=== PATIENT | male | born 1960 | race American Indian/Alaskan Native ===

== ENCOUNTER 2017-07-17 06:09 | Day surgery (SDC) | payer OTHER ==
[~2017-07-17 06:09] MED LIST: ANCEF/STERILE WATER 2 GM/20 ML IV NR; DEPO-MEDROL INTRA-ARTI ONE; MARCAINE-EPI/PF 0.5%-1:200,000 IJ ONE; NACL 0.9% 1000 ML 1,000 ML IV SCH; PEPCID PO NR; VERSED IV NR
[2017-07-17] MEDS ORDERED: NACL BACTERIOSTATIC INFILTRATI ONE (06:47)
[2017-07-17] MEDS ORDERED: DIPRIVAN 10 MG/ML IV ONE (07:25)
[2017-07-17] MEDS ORDERED: XYLOCAINE MPF 2% ONE (07:26)
[2017-07-17] MEDS ORDERED: DILAUDID ONE (07:26)
[2017-07-17] MEDS ORDERED: MARCAINE 0.5% 30 ML INFILTRATI ONE (07:27)
[2017-07-17] MEDS ORDERED: SUBLIMAZE ONE (07:28)
--- NOTE | 2017-07-17 07:40 | Anesthesia Consultation ---
Anesthesia Consult and Med Hx Date of service: 07/17/16 - Airway ROM Head & Neck: Adequate Mental/Hyoid Distance: Adequate Mallampati Class: Class II Intubation Access Assessment: Possibly Difficult - Pulmonary Exam CTA: Yes - Cardiac Exam Cardiac Exam: RRR - Pre-Operative Health Status ASA Pre-Surgery Classification: ASA2 Proposed Anesthetic Plan: General - Pulmonary Hx Smoking: No Hx Sleep Apnea: No (LOWELL PRE SCREEN HIGH RISK) - Cardiovascular System Hx Hypertension: Yes (X 4 YRS) - Endocrine Hx Non-Insulin Dependent Diabetes: Yes (takes metformin BS 131 this AM) - Other Systems Hx Cancer: No
--- NOTE | 2017-07-17 07:41 | Anesthesia Day of Surgery ---
Anesthesia Day of Surgery - Day of Surgery Patient Examined: Yes Patient H&P Reviewed: Yes Patient is NPO: Yes
[2017-07-17] MEDS ORDERED: MARCAINE 0.25% INFILTRATI ONE (07:55)
[2017-07-17] MEDS ORDERED: ZEMURON IV ONE (08:19)
[2017-07-17] MEDS ORDERED: ePHEDrine SULFATE ONE (08:45)
[2017-07-17] MEDS ORDERED: ZOFRAN ONE (08:49)
[2017-07-17] MEDS ORDERED: DECADRON ONE (08:49)
[2017-07-17] MEDS ORDERED: NEOSTIGMINE ONE (09:15)
[2017-07-17] MEDS ORDERED: ROBINUL ONE (09:15)
[2017-07-17] MEDS ORDERED: NACL 0.9% 1000 ML 1,000 ML ONE (09:37)
--- NOTE | 2017-07-17 10:39 | Procedure Note ---
Date of procedure: 07/17/17 Pre-op diagnosis: ruptured right anterior cruciate ligament Post-op diagnosis: same Procedure: Right anterior cruciate ligament reconstruction using allograft tendon Procedure The patient was given a femoral nerve block for postop pain management and preoperative holding neck she was transferred to the operating room and placed on the OR table in the supine position following the induction and intubation by anesthesia the patient's right lower extremity was prepped and draped in the usual sterile manner. A timeout procedure was done to identify the patient and the correct operative site. The leg was exsanguinated followed by inflation of the pneumatic tourniquet to 300 mmHg next routine stab wounds were made about the patellar tendon and the arthroscope and inflow cannula were inserted into the knee joint this was followed by inspection which revealed a acute anterior cruciate ligament rupture from the femoral attachment next the anterior cruciate ligament stump was debrided using a combination of the arthroscopic shaver and the tissue ablator the anatomic footprint on the distal femur was seen and using a 7 mm tunnel guide the guidewire was inserted into the anatomic footprint and brought out laterally through the subcutaneous tissues and skin A passing suture was placed on the guidewire and brought out laterally following this attention was turned to the tibial attachment of the anterior cruciate ligament and using the anterior cruciate ligament guide with 55 degree angle, a second guidewire was inserted into the proximal tibia position was checked via arthroscope this was followed by our reaming a 9 mm diameter tunnel. The anterior tibial allograft was prepared on the table with whip stitching and tensioning. The anterior cruciate ligament graft was advanced through the tibial tunnel into the joint and through the femoral tunnel the button was secured to the lateral cortex of the femur this was followed by tensioning of the anterior cruciate ligament graft under direct visualization of the arthroscope the knee was then cycled using flexion and extension maneuvers this was followed by insertion of a 9 mm interference screw into the proximal tibia D and E was then taken to range of motion and was found to be stable to stress testing the pulling sutures were removed the excess allograft was cut at the margins of the proximal tibia this was followed by closure of the wound and application of our routine postop dressings by the patient tolerated the procedure there were no complications he was sent to postanesthesia recovery in a stable condition Anesthesia: GETA Surgeon: JOSE LUIS BULLARD Automatic Fancy Machine Operator: ESCOBAR SANCHEZ Estimated blood loss: minimal Pathology: none Condition: stable Disposition: PACU
[2017-07-17] MEDS: SUBLIMAZE IV PRN ×2 (11:02→11:21)
--- NOTE | 2017-07-17 11:42 | Post Anesthesia Evaluation ---
- Post Anesthesia Evaluation Patient Participated: Yes Airway Patent: Yes Stable Respiratory Function: Yes Nausea/Vomiting: No Temp > 96.8F: Yes Pain Manageable: Yes Adequeate Hydration: Yes Anesthesia Complications: No
[2017-07-17] MEDS ORDERED: LACTATED RINGERS 1,000 ML IV SCH (12:00)
[2017-07-17] MEDS ORDERED: DILAUDID IV PRN (12:00)
[2017-07-17] MEDS ORDERED: ZOFRAN IV PRN (12:00)
[2017-07-17 14:22] VITALS: BP 154/69
== END 2017-07-17 06:10 | disposition home or self-care (01) ==
LOC: OR 06:09
PROVIDERS: ATTEND Orthopaedic Surgery
DX: S83.511A Sprain of anterior cruciate ligament of right knee, initial encounter (principal); W18.30XA Fall on same level, unspecified, initial encounter; Y93.9 Activity, unspecified; Y92.89 Other specified places as the place of occurrence of the external cause; Y99.9 Unspecified external cause status; I10 Essential (primary) hypertension; Z68.38 Body mass index [BMI] 38.0-38.9, adult
CPT/HCPCS: 29888; 82962; C1713; C1762; J0690; J1100; J1170; J2250; J2405; J2704; J2710; J3010; J7030; J1040

== ENCOUNTER 2017-10-20 12:10 | Outpatient (CLI) | payer OTHER ==
--- NOTE | 2017-10-20 18:31 | XRay Report ---
FINAL REPORT EXAM: XR KNEE 3V RT HISTORY: PAIN IN RIGHT KNEE TECHNIQUE: Three views of the right knee PRIORS: None. FINDINGS: There is questionable lucency seen through patella on AP view. Noted is a surgical plate and lucency present through the lateral femoral condyle likely reflecting prior ligamentous repair please correlate with surgical history. Small joint effusion present. No additional acute bony findings are seen. IMPRESSION: Questionable patellar fracture if continued clinical concern further evaluation with CT suggested Evidence for prior ACL repair Small joint effusion
== END 2017-10-20 12:11 | disposition home or self-care (01) ==
LOC: XRAY 12:10
PROVIDERS: ATTEND Orthopaedic Surgery
DX: M25.461 Effusion, right knee (principal); M25.561 Pain in right knee; Z98.890 Other specified postprocedural states

== ENCOUNTER 2018-04-23 11:48 | Day surgery (SDC) | payer OTHER ==
[2018-04-23] MEDS ORDERED: VERSED ONE (12:58)
[2018-04-23] MEDS ORDERED: SUBLIMAZE ONE (12:59)
[2018-04-23] MEDS ORDERED: DIPRIVAN 10 MG/ML IV ONE ×2 (12:59)
[2018-04-23] MEDS ORDERED: XYLOCAINE MPF 2% ONE (12:59)
[2018-04-23] MEDS ORDERED: NACL 0.9% 1000 ML 1,000 ML IV SCH (13:27)
--- NOTE | 2018-04-23 13:27 | Anesthesia Consultation ---
Anesthesia Consult and Med Hx Date of service: 04/23/18 - Airway Anesthetic Teeth Evaluation: Good ROM Head & Neck: Adequate Mental/Hyoid Distance: Adequate Mallampati Class: Class II Intubation Access Assessment: Probably Good - Pulmonary Exam CTA: Yes - Cardiac Exam Cardiac Exam: RRR - Pre-Operative Health Status ASA Pre-Surgery Classification: ASA3 Proposed Anesthetic Plan: MAC - Pulmonary Hx Smoking: No Hx Sleep Apnea: No (LOWELL PRE SCREEN HIGH RISK) - Cardiovascular System Hx Hypertension: Yes (X 4 YRS) Hx Heart Attack/AMI: No Hx Cardia Arrhythmia: No - Central Nervous System Hx Neuromuscular Disorder: Yes (Knee pain) - Gastrointestinal Hx Gastroesophageal Reflux Disease: No - Endocrine Hx Renal Disease: No Hx Non-Insulin Dependent Diabetes: Yes (takes metformin BS 131 this AM) - Hematic Hx Anemia: No Hx Sickle Cell Disease: No - Other Systems Hx Cancer: No - Additional Comments Anesthesia Medical History Comments: No GAC, No FHAC
[2018-04-23] MEDS ORDERED: XYLOCAINE 1% 20 mL ONE (16:27)
[2018-04-23] MEDS ORDERED: XYLOCAINE 1% 20 mL INFILTRATI ONE (16:39)
[2018-04-23] MEDS ORDERED: DEPO-Medrol INTRA-ARTI ONE (16:50)
[2018-04-23] MEDS ORDERED: WATER FOR IRRIG STERILE IR ONE (16:51)
[2018-04-23] MEDS ORDERED: DEPO-Medrol ONE (16:51)
--- NOTE | 2018-04-23 17:27 | Procedure Note ---
Date of procedure: 04/23/18 Pre-op diagnosis: right knee pain status post right anterior cruciate ligament reconstruction Post-op diagnosis: same Procedure: Geniculate nerve radiofrequency ablation Procedure The patient was brought to the OR and placed in the OR table supine position patient was Given IV fall and was masked the procedure following this the patient's right knee was prepped and draped in the routine sterile manner. A timeout procedure was done to identify the patient and the correct operative site. Under C-arm visualization the skin was anesthetized with the 1% lidocaine at both the medial and lateral suprapatellar regions as well as the proximal portion of the medial tibial metaphysis. Following this the the introducers radiofrequency abdomen introducers were inserted into the distal femoral metaphysis close to the bone and midway along the sagittal plane as well as along the proximal tibial metaphysis to be appropriate place simultaneously following this following this the probe were checked for full motor nerve function there did not appear to be any next the radiofrequency ablator was turned on and the nerves were ablated to a temperature of 60C for approximately 2-1/2 minutes each. A mixture of Depo-Medrol and lidocaine was then injected into each location to help with postoperative pain and inflammation. The patient tolerated the procedure there were no complications he was then taken to postanesthesia recovery in a stable condition. Anesthesia: other (IV sedation with propofol and mask) Surgeon: JOSE LUIS BULLARD Estimated blood loss: minimal Pathology: none Condition: stable Disposition: PACU
[2018-04-23 19:49] VITALS: BP 150/92
--- NOTE | 2018-04-24 08:00 | XRay Report ---
RIGHT KNEE, 2 VIEWS History: Right knee pain. Radiofrequency ablation. Findings: 2 fluoroscopic images of the right knee were obtained during needle placement for radio frequency ablation by orthopedics. 2 needles were placed on each side of the distal femoral metaphysis. A third needle was placed along the medial tibial metaphysis. Please correlate with the procedural report as needed.
== END 2018-04-23 19:30 | disposition home or self-care (01) ==
LOC: OR 11:48
PROVIDERS: ATTEND Orthopaedic Surgery
DX: M25.561 Pain in right knee (principal); I10 Essential (primary) hypertension; E78.00 Pure hypercholesterolemia, unspecified; E11.9 Type 2 diabetes mellitus without complications; M19.90 Unspecified osteoarthritis, unspecified site; Z79.899 Other long term (current) drug therapy; Z79.84 Long term (current) use of oral hypoglycemic drugs; Z98.890 Other specified postprocedural states
CPT/HCPCS: 64640; 73560; 82962; A4649; J1030; J2250; J2704; J3010; J7030